=== PATIENT | male | born 1955 | race Caucasian/White ===

== ENCOUNTER 2017-02-16 13:36 | Observation (INO) | payer OTHER ==
--- OUTSIDE RECORDS SUMMARY | 2017-02-16 13:40 | XMS REPORT | Continuity of Care Document ---
:1955 Author Organization [facility] ([facility]) Address [place] [address] Phone [phone] Care Team Providers Name Role Phone Unavailable Primary Care Provider Unavailable Source Comments This disclosure is being made pursuant to the Care Everywhere program, applicable federal and state laws, and may not contain all informaitonavailable regarding this patient.[facility] ([facility]) Active Allergies and Adverse Reactions Not on File Current Medications Prescription Sig. Disp. Refills Start Date End Date Status nitroglycerin 0.[address] 1 Tab (0.4 25 Tab 11 04/27/2015 Active tablet mg total) under the tongue every 5 minutes as needed Active Problems Not on file Social History Tobacco Use Types Packs/Day Years Used Date Never Assessed Plan of Care Health Maintenance Due Date Last Done Comments HCV Screening 1955 Hepatitis B Vaccine (1 of 3 - Primary Series) 1955 Tdap Vaccine 1967 Lipid Disorder Screening 1974 MMR Vaccine 1974 Td Vaccine 1974 Colonoscopy 2006 Prostate Cancer Screening 2006 Zoster Vaccine 2016 Influenza Vaccine: Seasonal (#1) 06/20/2016 Results from Last 3 Months Not on file
[2017-02-16] MEDS ORDERED: NITROGLYCERIN 0.4 MG/TAB BTL SL PRN (14:45)
[2017-02-16] MEDS ORDERED: MORPHINE SULFATE 10 MG/ML SYRG IV PRN (14:45)
[2017-02-16] MEDS ORDERED: ASPIRIN 81 MG TAB.CHEW PO STA (14:45)
[2017-02-16 15:39] LABS: Hematocrit 47.4 % (42.0-52.0); Hemoglobin 15.6 gm/dL (13.5-18.0); Mean Cell Volume 92.8 fl (78-100); Mean Corpuscular Hemoglobin 30.5 pg (27-31); Mean Corpuscular Hgb Conc 32.9 g/dl (32-36); Mean Platelet Volume 10.2 fl (6.0-9.5); Neutrophil # 5.6 K/mm3 (1.3-6.0); Neutrophil % 58.7 % (42-75.0); Red Blood Count 5.11 M/mm3 (4.7-6.0); Red Cell Distribution Width 13.6 % (11.5-14.0); White Blood Count 9.5 K/mm3 (4.0-10.5)
[2017-02-16 15:49] LABS: Albumin * 3.4 gm/dl (3.4-5.0); Anion Gap 11.1 mmol/L (6.8-13.8); BUN/Creatinine Ratio 11.7 (9.0-21.6); Bilirubin, Total 0.5 mg/dL (0.0-1.1); Calcium * 8.8 mg/dL (7.9-10.9); Carbon Dioxide 30.8 mmol/L (24-32.6); Chol/HDL Risk Ratio 4.6 mg/dL (3.3-5.0); Potassium 3.9 mmol/L (3.4-4.6); Total Protein 7.6 gm/dL (6.2-8.2)
[2017-02-16 15:53] LABS: Platelet Count 280 K/mm3 (150-450)
[2017-02-16] MEDS: METOPROLOL TARTRATE 25 MG TABLET PO SCH (20:47)
[2017-02-16] MEDS ORDERED: ROSUVASTATIN CALCIUM 10 MG TABLET PO SCH (21:00)
[2017-02-17] MEDS ORDERED: Regadenoson 0.08 MG/ML SYRG IV ONE (10:15)
[2017-02-17] MEDS ORDERED: Regadenoson 0.1 MG UNIT IV ONE (10:15)
--- NOTE | 2017-02-17 11:55 | DS ---
(1) Chest pain Diagnosis(s): AMI ruled out. likely due to stable angina. Problem: Acute (2) Coronary artery disease Diagnosis(s): s/p stenting Problem: Chronic Qualifiers: Coronary Disease-Associated Artery/Lesion type: [place] artery (3) Hypertension Problem: Chronic Qualifiers: Hypertension type: essential hypertension Qualified Code(s): I10 - Essential (primary) hypertension (4) Hyperlipidemia Problem: Acute Qualifiers: Hyperlipidemia type: mixed hyperlipidemia Qualified Code(s): E78.2 - Mixed hyperlipidemia (5) Chronic sinusitis Problem: Acute Qualifiers: Sinusitis location: unspecified location Qualified Code(s): J32.9 - Chronic sinusitis, unspecified (6) Obesity Problem: Chronic Qualifiers: Obesity type: due to excess calories Obesity severity: non-morbid Qualified Code(s): E66.09 - Other obesity due to excess calories Description of Stay: Chauncey Leal, is a 61-year-old white male, who was lost to follow-up since 2014, who has a previous medical history of coronary artery disease status post stenting, hypertension, hyperlipidemia, obesity, who finally followed up yesterday ( 02/16/2017) with chief complaint of chest pain. He said he has been having chest pain, on and off, for the last 2-3 months but lately has been more frequent and more intense. He said he describes chest pain as pressure like, substernal, 8/10, radiating to his left arm, not associated with nausea or diaphoresis. He says he takes nitroglycerin pills which are and it goes away. He also has not been taking any of his medication since 2014 because he lost his insurance. He was then admitted for observation under our chest pain protocol. He has been chest pain free since his admission and was ruled out for acute myocardial infarction. He underwent of nuclear pharmacologic stress test this morning. He did not show reversible myocardial ischemia but showed fixed defect from prior infarct. He is stable to be discharged today . Procedures Performed: none Discharge Disposition: Home self care Disposition: Home self-care Condition: Good Discharge Activity: Activity as tolerated Discharge Diet: Low salt, Low fat/chol, Other - K rich diet Referrals: Elzbieta Ferreira MD [Primary Care Provider] - Additional Patient Instructions (free text): Follow up with PCP ( Dr. Ferreira) in 2 weeks. Prescriptions (Any new or edited meds): Aspirin [Aspirin Chewable] 81 mg PO DAILY #30 tab.chew Clopidogrel Bisulfate [Plavix] 75 mg PO DAILY #30 tablet Furosemide [Lasix] 20 mg PO DAILY #30 tablet Metoprolol Succinate 25 mg PO DAILY #30 tab.er.24h Nitroglycerin [Nitrostat] 0.4 mg SL PRN PRN #30 btl PRN Reason: Chest Pain Rosuvastatin Calcium [Crestor] 20 mg PO HS #30 tablet Complete Home Medications List: Complete Home Medication List: Aspirin [Aspirin Chewable] 81 mg PO DAILY #30 tab.chew 02/17/17 Clopidogrel Bisulfate [Plavix] 75 mg PO DAILY #30 tablet 02/17/17 Furosemide [Lasix] 20 mg PO DAILY #30 tablet 02/17/17 Metoprolol Succinate 25 mg PO DAILY #30 tab.er.24h 02/17/17 Nitroglycerin [Nitrostat] 0.4 mg SL PRN PRN #30 btl 02/17/17 Rosuvastatin Calcium [Crestor] 20 mg PO HS #30 tablet 02/17/17 Amb Orders for Discharge: Basic Metabolic Panel Time Frame: 1 Week, Location: Determined By Patient
[2017-02-17] MEDS: METOPROLOL TARTRATE 25 MG TABLET PO SCH (11:58)
[2017-02-17 12:00] VITALS: BP 149/86
[2017-02-17] MEDS ORDERED: ASPIRIN 81 MG TAB.CHEW PO SCH (14:49)
[2017-02-17] MEDS ORDERED: CLOPIDOGREL BISULFATE 75 MG TABLET PO SCH (14:49)
== END 2017-02-17 14:14 | disposition home or self-care (01) ==
LOC: MS 13:36
PROVIDERS: ADMIT Internal Medicine; ATTEND Internal Medicine
DX: R07.9 Chest pain, unspecified (principal); I25.10 Atherosclerotic heart disease of native coronary artery without angina pectoris; Z87.891 Personal history of nicotine dependence; I10 Essential (primary) hypertension; E78.2 Mixed hyperlipidemia; J32.9 Chronic sinusitis, unspecified; E66.9 Obesity, unspecified
CPT/HCPCS: 36415; 78452; 80053; 80061; 84484; 85025; 93005; 93017; A9502; G0378; G0379; J2785

== ENCOUNTER 2017-10-10 22:42 | Emergency (ER) | payer OTHER ==
--- NOTE | 2017-10-10 23:44 | ERNOTE ---
Lower Extremity HPI - General Lower Extremities Pain: leg: right Time Seen by Provider: 10/10/17 23:23 Source: patient Exam Limitations: no limitations - Immun/Allergies/Home Medications Immunizations: IMMUNIZATION HX Immunizations Up to Date No History of Influenza Vaccine No Hx Pneumococcal Vaccination No Allergies/Adverse Reactions: Allergies Allergy/AdvReac Type Severity Reaction Status Date / Time bee venom protein (honey bee) Allergy Intermediate Other Verified 10/10/17 23:39 Home Medications: HOME MEDICATIONS Aspirin [Aspirin Chewable] 81 mg PO DAILY #30 tab.chew 02/17/17 [Last Taken Unknown] Clopidogrel Bisulfate [Plavix] 75 mg PO DAILY #30 tablet 02/17/17 [Last Taken Unknown] Metoprolol Succinate 25 mg PO DAILY #30 tab.er.24h 02/17/17 [Last Taken Unknown] Nitroglycerin [Nitrostat] 0.4 mg SL PRN PRN #30 btl 02/17/17 [Last Taken Unknown ] Rosuvastatin Calcium [Crestor] 20 mg PO HS #30 tablet 02/17/17 [Last Taken Unknown] Bupropion HCl [Wellbutrin Sr] 150 mg PO DAILY 06/14/17 [Last Taken Unknown] Multivit-Min/FA/Lycopen/Lutein [Centrum Silver Men Tablet] 1 each PO DAILY 06/14 [Last Taken Unknown] [place]-3S/Dha/Epa/Fish Oil [Fish Oil 1,200 mg Softgel] 1 each PO DAILY 06/14/17 [ Last Taken Unknown] Vitamin E 1,000 unit PO DAILY 06/14/17 [Last Taken Unknown] Albuterol Sulfate [Proair Hfa] 2 puff IH QID PRN 10/10/17 [Last Taken Unknown] Furosemide [Lasix] 60 mg PO DAILY 10/10/17 [Last Taken Unknown] HYDROmorphone HCL [Dilaudid] 2 mg PO Q4H PRN 10/10/17 [Last Taken Unknown] - History of Present Illness Narrative: Pt had a CABG on 09/26/17. He has been doing well. Today he notice that his right leg was a little more swollen than his left and he has increasing bruising as well. Pain is increasing Occurred: this morning Method of Injury: Reports: other - surgery Modifying Factors - (Improves): Reports: immobilization Modifying Factors - (Worsens): Reports: movement Associated Symptoms: Reports: none Other Injuries: Reports: none Review of Systems - Review of Systems Constitutional: Absent: recent illness EYE: Present: no symptoms reported ENT: Present: no symptoms reported Respiratory: Present: shortness of breath - but not any more than he has had since his CABG Cardiology: Absent: chest pain, claudication Gastrointestinal/Abdominal: Present: no symptoms reported Genitourinary: Present: no symptoms reported Musculoskeletal: Present: muscle pain Skin: Present: change in color - bruising on right calf Neurological: Absent: numbness, tingling Endocrine: Present: no symptoms reported Hematologic/Lymphatic: Present: easy bruising Psych: Present: no symptoms reported - Patient's Past Medical History Patient History - Cardiac/Respiratory: COPD, Myocardial Infarction, Valvular Heart Disease Patient History - Cancer: No Hx of Cancer Patient History - Surgical Procedures: Coronary Bypass Surgery, Cardiac stent Patient History - Other: None - Family History Mother Family History - Cancer: Bone Father Family History - Cancer: Esophageal - Social History Living Situations: alone Abuse History: No History of abuse Psych History: Hx of Anxiety, Hx of Depression Smoking Status: Former smoker Have you smoked in the past 12 months: Yes Smoking Stop Date: 09/19/17 Alcohol Use: none Drug Use: none - Immunizations Immunizations Up to Date: No Hx Pneumococcal Vaccination: No History of Influenza Vaccine: No Physical Exam - Physical Exam General Appearance: Present: wd/wn, alert Head Exam: Present: normal inspection Neck: Present: normal inspection, nontender Respiratory: Present: no respiratory distress Extremity Exam: Present: calf tenderness - right, extremity edema - 2+ bilateral , right calf 1 cm larger than left Neurological Exam: Present: alert, oriented, normal mood/affect, no motor/ sensory deficits Skin Exam: Present: other - ecchymoses posterior calf approx. 2 cm wide lower 2/ 3 of the calf Lymphatic Exam: Present: no adenopathy ED Progress - Results and Orders Patient's Lab Results:: I have reviewed the patient's lab results. Results and Orders: Laboratory Tests 10/10/17 10/10/17 23:58 23:58 WBC 9.4 Hgb 10.9 L Hct 34.2 L Plt Count 456 H D-Dimer 2.96 H - Vital Signs Patient's Vital Signs:: I have reviewed the patient's vital signs. Vital Signs: Vital Signs 10/10/17 22:55 Temperature 36.6 C Pulse Rate 78 Respiratory 20 Rate Blood Pressure 115/62 O2 Sat by Pulse 97 Oximetry - CT/Ultrasound CT/Ultrasound Narrative: Venous doppler right LE. No evidence to suggest DVT. superficial vein thrombosis centered within the greater saphenous vein - Progress/Reassessment Chief Complaint: Lower Extremity Pain/ Injury Progress:: Unchanged Departure Clinical Impression: Superficial thrombosis of right lower extremity - Departure Disposition: Home self-care Condition: Good Instructions: Phlebitis, [id number], Heat Therapy Additional Instructions: See your primary care provider or pharmacy intake coordinator as scheduled. Stay as active as you can. Referrals: Elzbieta Ferreira MD [Primary Care Provider] -
[2017-10-11 00:06] LABS: Hematocrit 34.2 % (42.0-52.0); Hemoglobin 10.9 gm/dL (13.5-18.0); Mean Cell Volume 95.3 fl (78-100); Mean Corpuscular Hemoglobin 30.4 pg (27-31); Mean Corpuscular Hgb Conc 31.9 g/dl (32-36); Mean Platelet Volume 8.9 fl (6.0-9.5); Neutrophil # 6.2 K/mm3 (1.3-6.0); Neutrophil % 65.9 % (42-75.0); Platelet Count 456 K/mm3 (150-450); Red Blood Count 3.59 M/mm3 (4.7-6.0); White Blood Count 9.4 K/mm3 (4.0-10.5)
[2017-10-11 02:19] VITALS: BP 130/62
== END 2017-10-11 02:24 | disposition home or self-care (01) ==
LOC: ER 22:42
DX: I82.401 Acute embolism and thrombosis of unspecified deep veins of right lower extremity (principal); J44.9 Chronic obstructive pulmonary disease, unspecified; I25.2 Old myocardial infarction